=== PATIENT | male | born 1955 | race Caucasian/White ===

== ENCOUNTER 2016-08-05 19:27 | Emergency (ER) | payer MEDICAID ==
[2016-08-05 19:48] VITALS: BMI 28.7
[2016-08-05 20:04] VITALS: BP 134/72; PULSE 72; RESP 16; TEMP 97.7
--- NOTE | 2016-08-05 20:04 | ED PDOC ---
Arrival/HPI <Logan Lau DO - Last Filed: 08/06/16 00:07> - General Historian: Patient - History of Present Illness Time/Duration: > month Symptom Onset: Gradual Symptom Course: Worsening Context: Home <Ashlee Wright - Last Filed: 08/08/16 15:46> - General Chief Complaint: ENT Problem Time Seen by Provider: 08/05/16 19:58 - History of Present Illness Narrative History of Present Illness (Text): 08/05/16 20:00 This 60 yo male with pmh tobacco use, presents to this ED c/o left mandibular mass x 4-5 weeks. Patient stated mass has worsen within last few days. Denies ear pain, sore throat, cough, sob, cp, abdominal pain, dizziness, or skin rash. Patient noted left calf pain x 4 weeks. (Ashlee Wright) Past Medical History - Provider Review Nursing Documentation Reviewed: Yes - Cardiac Hx Cardiac Disorders: No - Pulmonary Hx Respiratory Disorders: No - Neurological Hx Neurological Disorder: No - HEENT Hx HEENT Disorder: No - Renal Hx Renal Disorder: No - Endocrine/Metabolic Hx Diabetes Mellitus Type 2: Yes - Hematological/Oncological Hx Blood Disorders: No - Integumentary Hx Dermatological Disorder: No - Musculoskeletal/Rheumatological Hx Musculoskeletal Disorders: No - Gastrointestinal Hx Gastrointestinal Disorders: No - Genitourinary/Gynecological Hx Genitourinary Disorders: No - Psychiatric Hx Psychophysiologic Disorder: No Hx Substance Use: No - Anesthesia Hx Anesthesia: No Hx Anesthesia Reactions: No Hx Malignant Hyperthermia: No <Ashlee Wright P - Last Filed: 08/08/16 15:46> Family/Social History - Physician Review Nursing Documentation Reviewed: Yes Family/Social History: No Known Family HX Smoking Status: Heavy Smoker > 10 Cigarettes Daily Hx Alcohol Use: No Hx Substance Use: No <Ashlee Wright P - Last Filed: 08/08/16 15:46> Allergies/Home Meds <Logan Lau DO - Last Filed: 08/06/16 00:07> <Ashlee Wright - Last Filed: 08/08/16 15:46> Allergies/Adverse Reactions: Allergies No Known Allergies Allergy (Verified 08/05/16 19:48) Home Medications: Home Meds Medication Instructions Recorded Confirmed Famotidine [Pepcid AC] 0 PO 08/05/16 Review of Systems - Review of Systems Constitutional: Normal. absent: Fatigue, Weight Change, Fevers Eyes: Normal ENT: Other (Left neck mass) Respiratory: Normal. absent: SOB, Cough Cardiovascular: Normal. absent: Chest Pain, Palpitations Gastrointestinal: Normal. absent: Abdominal Pain, Nausea, Vomiting Genitourinary Male: Normal. absent: Dysuria Musculoskeletal: Other (Left calf pain). absent: Back Pain, Neck Pain, Joint Swelling Skin: Normal, Other (See HPI) Neurological: Normal Endocrine: Normal Hemo/Lymphatic: Normal Psychiatric: Normal <Wright,Nahim P - Last Filed: 08/08/16 15:46> Physical Exam Temperature: Afebrile Blood Pressure: Normal Pulse: Regular Respiratory Rate: Normal Appearance: Positive for: Well-Appearing, Non-Toxic, Comfortable Pain Distress: None Mental Status: Positive for: Alert and Oriented X 3 - Systems Exam Head: Present: Atraumatic, Normocephalic Pupils: Present: PERRL Extroacular Muscles: Present: EOMI Conjunctiva: Present: Normal Mouth: Present: Moist Mucous Membranes Neck: Present: Normal Range of Motion Respiratory/Chest: Present: Clear to Auscultation, Good Air Exchange. No: Respiratory Distress, Accessory Muscle Use Cardiovascular: Present: Regular Rate and Rhythm, Normal S1, S2. No: Murmurs Abdomen: Present: Normal Bowel Sounds. No: Tenderness, Distention, Peritoneal Signs Back: Present: Normal Inspection Upper Extremity: Present: Normal Inspection. No: Cyanosis, Edema Lower Extremity: Present: Normal Inspection. No: Edema Neurological: Present: GCS=15, CN II-XII Intact, Speech Normal Skin: Present: Warm, Dry, Normal Color. No: Rashes Psychiatric: Present: Alert, Oriented x 3, Normal Insight, Normal Concentration <Wright,Nahim P - Last Filed: 08/08/16 15:46> Vital Signs Temp Pulse Resp BP Pulse Ox 08/05/16 23:20 16 98 08/05/16 20:03 97.7 F 72 16 134/72 99 Medical Decision Making - RAD Interpretation Hide Handler: Radiologist <Logan Lau DO - Last Filed: 08/06/16 00:07> Re-evaluation Time: 02:15 Reassessment Condition: Re-examined, Unchanged <Wright,Nahim P - Last Filed: 08/08/16 15:46> ED Course and Treatment: 08/06/16 00:08 CT neck results reviewed: IMPRESSION: 2.3 x 3 x 3.4 cm enhancing mass within the left parotid gland. Question pleomorphic adenoma versus other tumor. Tissue sampling will aid in evaluation. (Logan Lau DO) 08/05/16 21:18 pending labs, CT neck scan. Lower extremity venous doppler was negative as per ultrasound. Dr. Lau is aware of this case, and he will f/u labs, and CT imaging result. (Ashlee Wright) - Lab Interpretations Lab Results: 08/05/16 21:20 08/05/16 21:20 Lab Results 08/05/16 21:20: WBC 8.0, RBC 5.18, Hgb 15.4, Hct 44.7, MCV 86.3, MCH 29.7, MCHC 34.5, RDW 13.4, Plt Count 251, MPV 11.2 H, Gran % 60.2, Lymph % (Auto) 31.6, [place] % (Auto) 5.6, Eos % (Auto) 2.2, Baso % (Auto) 0.4, Gran # 4.83, Lymph # 2.5 , [place] # 0.5, Eos # 0.2, Baso # 0.03 08/05/16 21:20: Sodium 138, Potassium 4.6, Chloride 99, Carbon Dioxide 28, Anion Gap 16, BUN 17, Creatinine 0.8, Est GFR ( Amer) > 60, Est GFR (Non- Af Amer) > 60, Random Glucose 178 H, Calcium 9.4, Total Bilirubin 0.6, AST 20, ALT 32, Alkaline Phosphatase 66, Total Protein 7.7, Albumin 4.0, Globulin 3.7, Albumin/Globulin Ratio 1.1 - RAD Interpretation Narrative RAD Interpretations (Text): EXAM: CT Neck With Intravenous Contrast FINDINGS: Airway is unremarkable as visualized. No significant tonsillar enlargement. No peritonsillar abscess. Normal epiglottis. Retropharyngeal space is unremarkable. 2.3 x 3 x 3.4 cm enhancing mass within the left parotid gland. Shotty nodes. Thyroid demonstrates no enlarged or calcified nodules. Osseous structures intact. IMPRESSION: 2.3 x 3 x 3.4 cm enhancing mass within the left parotid gland. Question pleomorphic adenoma versus other tumor. Tissue sampling will aid in evaluation. (Logan Lau DO) Radiology Orders: 08/05/16 19:59 NECK SOFT TISSUE W/CONTRAST [CT] Stat DUPLEX LOWER EXTRM VEIN LEFT [US] Stat - Medication Orders Current Medication Orders: Discontinued Medications Iohexol (Omnipaque 350 100 Ml) Confirm Administered Dose 350 mg .ROUTE .STK-MED ONE Stop: 08/05/16 22:40 Disposition/Present on Arrival <Logan Lau DO - Last Filed: 08/06/16 00:07> - Present on Arrival Any Indicators Present on Arrival: No History of DVT/PE: No History of Uncontrolled Diabetes: No Urinary Catheter: No History of Decub. Ulcer: No History Surgical Site Infection Following: None - Disposition Have Diagnosis and Disposition been Completed?: Yes Disposition Time: 03:40 <Ashlee Wright - Last Filed: 08/08/16 15:46> - Disposition Diagnosis: Parotid mass Disposition: HOME/ ROUTINE Condition: GOOD Additional Instructions: Thank you for letting us take care of you today. You were treated for a parotid mass. The emergency medical care you received today was directed at your acute symptoms. If you were prescribed any medication, please fill it and take as directed. It may take several days for your symptoms to resolve. Return to the Emergency Department if your symptoms worsen, do not improve, or if you have any other problems. Please contact your doctor or call one of the physicians/clinics you have been referred to that are listed on the Patient Visit Information form that is included in your discharge packet. Bring any paperwork you were given at discharge with you along with any medications you are taking to your follow up visit. Our treatment cannot replace ongoing medical care by a primary care provider (PCP) outside of the emergency department. Thank you for allowing the [facility] team to be part of your care today. Follow up with Dr. You (ENT) in 2-3 days for further evaluation of the mass on the side of your jaw. Return to the emergency room if you have any concerns. Prescriptions: Ibuprofen [Motrin] 600 mg PO Q6 PRN #20 tab PRN Reason: Pain, Moderate (4-7) Referrals: Tam You DO [Staff Provider] - Follow up with primary PCP,NO [Primary Care Provider] - Follow up with primary
[2016-08-05 21:26] LABS: ADD MANUAL DIFF? NO
[2016-08-05 21:41] LABS: ALB/GLOB RATIO 1.1 (1.1-1.8); ALKALINE PHOSPHATASE 66 U/L (38-133); ALT/SGPT 32 U/L (7-56); AST/SGOT 20 U/L (15-59); BILIRUBIN,TOTAL 0.6 mg/dL (0.2-1.3); BLOOD UREA NITROGEN 17 mg/dL (7-21); CALCIUM 9.4 mg/dL (8.4-10.5); CARBON DIOXIDE 28 mmol/L (21-33); CHLORIDE 99 mmol/L (98-107); GFR AFRICAN-AMERICAN > 60; GLUCOSE,RANDOM 178 mg/dL (70-110); POTASSIUM 4.6 mmol/L (3.6-5.0); SODIUM 138 mmol/L (132-148); TOTAL PROTEIN 7.7 g/dL (5.8-8.3)
[2016-08-05 22:02] LABS: BASO # 0.03 K/mm3 (0.0-2.0); BASO % 0.4 % (0.0-3.0); EOS # 0.2 (0.0-0.7); EOS % 2.2 % (1.5-5.0); GRAN # 4.83 (1.4-6.5); GRAN % 60.2 % (50.0-68.0); HEMATOCRIT 44.7 % (42.0-52.0); LYMPH # 2.5 (1.2-3.4); LYMPH % 31.6 % (22.0-35.0); MEAN CELL VOLUME 86.3 fL (80.0-105.0); MEAN CORPUSCULAR HEMOGLOBIN 29.7 pg (25.0-35.0); MEAN CORPUSCULAR HGB CONC 34.5 g/dl (31.0-37.0); MEAN PLATELET VOLUME 11.2 fl (7.0-11.0); MONO # 0.5 (0.1-0.6); MONO % 5.6 % (1.0-6.0); PLATELET COUNT 251 10^3/uL (120.0-450.0); RED CELL DISTRIBUTION WIDTH 13.4 % (11.5-14.5)
[2016-08-05] MEDS ORDERED: Iohexol 350 MG/100 ML VIAL ONE (22:39)
--- NOTE | 2016-08-05 23:24 | CT ---
EXAM: CT Neck With Intravenous Contrast CLINICAL HISTORY: 60 years old, male; Signs and symptoms; Mass, lump, or swelling in neck; Additional info: Left madibular mass TECHNIQUE: Axial computed tomography images of the neck with intravenous contrast. This CT exam was performed using one or more of the following dose reduction techniques: automated exposure control, adjustment of the mA and/or kV according to patient size, and/or use of iterative reconstruction technique. Coronal and sagittal reformatted images were created and reviewed. CONTRAST: 96 mL of OMNI 350 administered intravenously. COMPARISON: No relevant prior studies available. FINDINGS: Airway is unremarkable as visualized. No significant tonsillar enlargement. No peritonsillar abscess. Normal epiglottis. Retropharyngeal space is unremarkable. 2.3 x 3 x 3.4 cm enhancing mass within the left parotid gland. Shotty nodes. Thyroid demonstrates no enlarged or calcified nodules. Osseous structures intact. IMPRESSION: 2.3 x 3 x 3.4 cm enhancing mass within the left parotid gland. Question pleomorphic adenoma versus other tumor. Tissue sampling will aid in evaluation.
[2016-08-06 01:53] VITALS: O2SAT 98
--- NOTE | 2016-08-06 10:07 | US ---
PROCEDURE: Left lower extremity venous US HISTORY: Leg pain and swelling. Evaluate for DVT. PHYSICIAN(S): Sal Hernandez MD. TECHNIQUE: Duplex sonography and color-flow Doppler with graded compression were used to evaluate the deep venous system of the left lower extremity. FINDINGS: The visualized deep venous system of the left lower extremity is sonographically normal and compressible. Normal wave forms and augmentation are seen. There is no sonographic evidence for deep venous thrombosis in the visualized segments of the left lower extremity. IMPRESSION: 1. No sonographic evidence for deep venous thrombosis in the visualized segments of the left lower extremity.
== END 2016-08-06 01:53 | disposition home or self-care (01) ==
LOC: ED 19:27
DX: K11.8 Other diseases of salivary glands (principal)
CPT/HCPCS: 70491; 80053; 85025; 93971; 99283; Q9967

== ENCOUNTER 2017-10-25 15:01 | Inpatient (IN) | payer MEDICAID ==
[2017-10-25 15:14] VITALS: BMI 27.1
--- NOTE | 2017-10-25 15:43 | ED PDOC ---
Arrival/HPI - General Historian: Patient, Family - History of Present Illness Time/Duration: 1 hour Symptom Onset: Sudden Symptom Course: Resolved Quality: Aching, Cramping, Gas Like Severity Level: 4 Context: Standing, Walking <Roger Torres - Last Filed: 10/25/17 17:49> <Holland Lee - Last Filed: 10/25/17 18:20> - General Chief Complaint: Weakness/Neurological Deficit Time Seen by Provider: 10/25/17 15:20 - History of Present Illness Narrative History of Present Illness (Text): 10/25/17 15:43 61 year-old male with PMH of DM2 and GERD presents to the ED complaining of general weakness, chest discomfort, and dizziness. Approximately one hour ago, the patient had just finished having a big lunch, went outside, and started pulling weeds in his yard. He began feeling nauseous and short of breath. Patient vomited and then went inside his home where he collapsed. Patient denies falling and hitting his head or losing consciousness. Patient currently states that he is feeling better but still feels very weak and his chest discomfort feels like acid reflux, which he deals with often. Patient admits to nausea, vomiting, dizziness, chest discomfort, weakness, and fatigue. Patient is also a smoker and reports that he smokes one pack per day for many years. (Roger Torres) Past Medical History - Provider Review Nursing Documentation Reviewed: Yes - Travel History Have you recently traveled outside [place] w/in the past 3 mons?: No - Cardiac Hx Cardiac Disorders: No - Pulmonary Hx Respiratory Disorders: No - Neurological Hx Neurological Disorder: No - HEENT Hx HEENT Disorder: No - Renal Hx Renal Disorder: No - Endocrine/Metabolic Hx Diabetes Mellitus Type 2: Yes - Hematological/Oncological Hx Blood Disorders: No - Integumentary Hx Dermatological Disorder: No - Musculoskeletal/Rheumatological Hx Musculoskeletal Disorders: No - Gastrointestinal Hx Gastrointestinal Disorders: No - Genitourinary/Gynecological Hx Genitourinary Disorders: No - Psychiatric Hx Psychophysiologic Disorder: No Hx Substance Use: No - Anesthesia Hx Anesthesia: No Hx Anesthesia Reactions: No Hx Malignant Hyperthermia: No <Roger Torres - Last Filed: 10/25/17 17:49> Family/Social History - Physician Review Nursing Documentation Reviewed: Yes Family/Social History: Diabetes (mother) Smoking Status: Heavy Smoker > 10 Cigarettes Daily Hx Alcohol Use: No Hx Substance Use: No <Roger Torres - Last Filed: 10/25/17 17:49> Allergies/Home Meds <Roger Torres - Last Filed: 10/25/17 17:49> <Holland Lee - Last Filed: 10/25/17 18:20> Allergies/Adverse Reactions: Allergies No Known Allergies Allergy (Verified 10/25/17 15:27) Review of Systems - Review of Systems Constitutional: absent: Fatigue, Fevers, Night Sweats Eyes: absent: Vision Changes, Photophobia ENT: absent: Hearing Changes, Sore Throat Respiratory: SOB. absent: Cough Cardiovascular: Chest Pain. absent: Palpitations, Edema, Syncope Gastrointestinal: Nausea, Vomiting. absent: Abdominal Pain Genitourinary Male: absent: Dysuria Musculoskeletal: absent: Arthralgias Skin: absent: Rash, Pruritis Neurological: Dizziness. absent: Headache, Speech Changes, Facial Droop Endocrine: Diaphoresis Hemo/Lymphatic: absent: Adenopathy Psychiatric: absent: Anxiety, Depression <Roger Torres - Last Filed: 10/25/17 17:49> - Physician Review All systems were reviewed & negative as marked: Yes <Holland Lee - Last Filed: 10/25/17 18:20> Physical Exam Vital Signs Reviewed: Yes <Roger Torres - Last Filed: 10/25/17 17:49> Temperature: Afebrile Blood Pressure: Normal Pulse: Regular Respiratory Rate: Normal Appearance: Positive for: Well-Appearing, Non-Toxic, Uncomfortable, Other ( Diaphoretic) Pain Distress: None Mental Status: Positive for: Alert and Oriented X 3 - Systems Exam Head: Present: Atraumatic, Normocephalic Pupils: Present: PERRL Extroacular Muscles: Present: EOMI Conjunctiva: Present: Normal Ears: Present: NORMAL TM, Normal Canal. No: Erythema Mouth: Present: Moist Mucous Membranes Pharnyx: No: ERYTHEMA, EXUDATE, TONSILS ENLARGED Neck: Present: Normal Range of Motion Respiratory/Chest: Present: Clear to Auscultation, Good Air Exchange, Decreased Breath Sounds. No: Respiratory Distress, Accessory Muscle Use Cardiovascular: Present: Regular Rate and Rhythm, Normal S1, S2. No: Murmurs Abdomen: No: Tenderness, Distention, Peritoneal Signs, Rebound, Guarding Back: Present: Normal Inspection Upper Extremity: Present: Normal Inspection. No: Cyanosis, Edema Lower Extremity: Present: Normal Inspection. No: Edema Neurological: Present: GCS=15, CN II-XII Intact, Speech Normal, Motor Func Grossly Intact Skin: Present: Warm, Normal Color, Diaphoretic. No: Rashes Psychiatric: Present: Alert, Oriented x 3, Normal Insight, Normal Concentration <Holland Lee - Last Filed: 10/25/17 18:20> Vital Signs Temp Pulse Resp BP Pulse Ox 10/25/17 17:08 97.7 F 10/25/17 16:57 75 18 127/64 97 10/25/17 16:17 72 15 96 10/25/17 15:17 128/88 Medical Decision Making - Lab Interpretations I have reviewed the lab results: Yes Interpretation: Abnormal lab values (hyperglycemia) - RAD Interpretation Belting And Webbing Inspector: Radiologist - EKG Interpretation Interpreted by ED Physician: Yes Type: 12 lead EKG Comparison: No previous EKG avail. <Roger Torres - Last Filed: 10/25/17 17:49> <Holland Lee - Last Filed: 10/25/17 18:20> ED Course and Treatment: 10/25/17 16:47 -Suspicion for ACS -EKG reviewed by STEMI metal cut off saw operator, no need for cath at this time -Troponin pending -Patient reports pain has improved s/p ASA and nitro paste 10/25/17 17:06 -Spoke with Dr. Hussein who agrees to admission (Roger Torres) 10/25/17 16:41 Seen and examined with the resident. Our history and physical exam reveals a gentleman with acute onset of severe diaphoresis nausea and vomiting chest pain near syncope and shortness of breath. He is a heavy smoker. His EKG shows diffuse minimal ST elevations. The EKG was reviewed by the STEMI metal cut off saw operator , who does not want to take the patient to the lab at this time. ( Holland Lee) - Lab Interpretations Lab Results: 10/25/17 15:57 10/25/17 15:57 Lab Results 10/25/17 15:57: Lipase 249 10/25/17 15:57: PT 12.0, INR 1.05, APTT 25.1 10/25/17 15:57: WBC 7.9, RBC 4.92, Hgb 14.4, Hct 41.6 L, MCV 84.6, MCH 29.3, MCHC 34.6, RDW 13.4, Plt Count 193, MPV 11.0, Gran % 75.6 H, Lymph % (Auto) 15.0 L, [place] % (Auto) 8.1 H, Eos % (Auto) 0.9 L, Baso % (Auto) 0.4, Gran # 5.94 , Lymph # (Auto) 1.2, [place] # (Auto) 0.6, Eos # (Auto) 0.1, Baso # (Auto) 0.03 10/25/17 15:57: Sodium 140, Potassium 4.1, Chloride 103, Carbon Dioxide 28, Anion Gap 14, BUN 15, Creatinine 1.0, Est GFR ( Amer) > 60, Est GFR (Non- Af Amer) > 60, Random Glucose 233 H, Calcium 9.4, Phosphorus 2.3 L, Magnesium 2.0, Total Bilirubin 0.4, AST 16 L, ALT 23, Alkaline Phosphatase 62, Lactate Dehydrogenase 364, Total Creatine Kinase 62, Troponin I 0.01, Total Protein 7.0 , Albumin 4.0, Globulin 3.0, Albumin/Globulin Ratio 1.3 - RAD Interpretation Narrative RAD Interpretations (Text): 10/25/17 17:07 CXR without acute findings (Roger Torres) Radiology Orders: 10/25/17 15:37 CHEST PORTABLE [RAD] Stat - EKG Interpretation EKG Interpretation (Text): 10/25/17 17:07 Normal sinus but with some ST abnormalities in II, III, reviewed with STEMI metal cut off saw operator (Roger Torres) - Medication Orders Current Medication Orders: Aspirin (Ecotrin) 81 mg PO DAILY ERMELINDA Insulin Human Regular (Humulin R Med) 0 units SC ACHS ERMELINDA PRN Reason: Protocol Discontinued Medications Aspirin (Aspirin) 325 mg PO STAT STA Stop: 10/25/17 15:56 Last Admin: 10/25/17 16:09 Dose: 325 mg Nitroglycerin (Nitro-Bid 2% Oint) 1 ea TOP STAT STA Stop: 10/25/17 16:00 Last Admin: 10/25/17 16:09 Dose: 1 ea Disposition/Present on Arrival - Present on Arrival Any Indicators Present on Arrival: No History of DVT/PE: No History of Uncontrolled Diabetes: No Urinary Catheter: No History of Decub. Ulcer: No History Surgical Site Infection Following: None - Disposition Disposition Time: 17:09 Patient Plan: Admission <Rgoer Torres - Last Filed: 10/25/17 17:49> - Present on Arrival Any Indicators Present on Arrival: No History of DVT/PE: No History of Uncontrolled Diabetes: Yes Urinary Catheter: No History of Decub. Ulcer: No - Disposition Have Diagnosis and Disposition been Completed?: Yes Patient Plan: Observation, Telemetry <Holland Lee - Last Filed: 10/25/17 18:20> - Disposition Diagnosis: Weakness, High risk of cardiac event, Chest pain, Dyspnea, Diaphoresis, Nausea and vomiting, Hyperglycemia Disposition: HOSPITALIZED Patient Problems: Current Active Problems Problem Status Onset Chest pain Acute Diaphoresis Acute Dyspnea Acute High risk of cardiac event Acute Hyperglycemia Acute Nausea and vomiting Acute Weakness Acute Condition: FAIR
[2017-10-25] MEDS ORDERED: Nitroglycerin 2% Ointment Foilpak UD TOP STA (15:59)
--- NOTE | 2017-10-25 16:03 | RAD ---
Date of service: 10/25/2017 HISTORY: SOB, pre-syncopal episode COMPARISON: No prior. FINDINGS: LUNGS: No active pulmonary disease. PLEURA: No significant pleural effusion identified, no pneumothorax apparent. CARDIOVASCULAR: Normal. OSSEOUS STRUCTURES: No significant abnormalities. VISUALIZED UPPER ABDOMEN: Normal. OTHER FINDINGS: None. IMPRESSION: No active disease.
[2017-10-25 16:16] LABS: BASO # 0.03 K/mm3 (0.0-2.0); BASO % 0.4 % (0.0-3.0); EOS # 0.1 (0.0-0.7); EOS % 0.9 % (1.5-5.0); GRAN # 5.94 (1.4-6.5); GRAN % 75.6 % (50.0-68.0); HEMOGLOBIN 14.4 g/dL (14.0-18.0); LYMPH # 1.2 (1.2-3.4); MEAN CELL VOLUME 84.6 fl (80.0-105.0); MEAN CORPUSCULAR HEMOGLOBIN 29.3 pg (25.0-35.0); MEAN CORPUSCULAR HGB CONC 34.6 g/dl (31.0-37.0); MONO # 0.6 (0.1-0.6); MONO % 8.1 % (1.0-6.0); RBC 4.92 10^6/uL (3.5-6.1); RED CELL DISTRIBUTION WIDTH 13.4 % (11.5-14.5); WHITE BLOOD COUNT 7.9 10^3/ul (4.5-11.0)
[2017-10-25 16:26] LABS: INR 1.05; PARTIAL THROMBOPLASTIN TIME 25.1 Seconds (25.1-36.5)
[2017-10-25 16:37] LABS: ALB/GLOB RATIO 1.3 (1.1-1.8); ALT/SGPT 23 U/L (7-56); AST/SGOT 16 U/L (17-59); BLOOD UREA NITROGEN 15 mg/dL (7-21); CALCIUM 9.4 mg/dL (8.4-10.5); GFR AFRICAN-AMERICAN > 60; GFR NON-AFRICAN AMERICAN > 60
[2017-10-25 16:47] LABS: TROPONIN I 0.01 ng/mL
--- NOTE | 2017-10-25 18:23 | CP.PCM.HP ---
<Russell Dunne - Last Filed: 10/25/17 19:19> History of Present Illness - History of Present Illness History of Present Illness: Russell Dunne, PGY-1 History and Physical for Hospitalist Service CC: substernal chest pain Shortness of breath, dizziness HPI: 61 M with PMHx of GERD, PUD, and DM2 who presented with non-radiating, non- reproducible substernal chest pain, full body weakness and dizziness after weeding his garden this afternoon. Per the patient, patient went outside to do house chores after eating a big meal. Patient typically waits to digest food due to his history of indigestion but was in a christopher today. Patient was outside in the heat and felt nauseous and weak, at which point patient sat on the ground and vomited. Vomit was one time nonbloody and consisted of food he had for lunch. Patient reported relief at that point. Patient denies falling, hitting his head, loss of consciousness, urinary or bowel incontinence or vision changes. Patient's called for an ambulance. Patient received ASA 325 and nitropaste , which patient reports complete relief from. Patient denies any previous cardiac issues or family hx of similar issues. PMHx: GERD, DM2, L sided UE tremor PSHx: unknown All: NKDA Social: tobacco 1 pk/day, denies ETOH and substance abuse. Fam Hx: mom has DM, otherwise unknown Home Meds: Pepcid 20, Glipizide 5, Motrin PRN PMD: Dr. Srinivasan Pharm: None Present on Admission - Present on Admission Any Indicators Present on Admission: No History of Uncontrolled Diabetes: No Review of Systems - Constitutional Constitutional: absent: Anorexia, Chills, Frequent Falls, Weight Loss, Weakness - EENT Eyes: absent: Other Visual Disturbances, Loss of Vision Ears: Dizziness (has resolved since inciting event this afternoon). absent: Ear Pain Nose/Mouth/Throat: absent: Dry Mouth, Dysphagia, Hoarsness, Mouth Pain - Cardiovascular Cardiovascular: Chest Pain (resolved), Lightheadedness (improved). absent: Leg Edema, Orthopnea, Palpitations - Respiratory Respiratory: absent: Cough, Hemoptysis, Stridor, Pain with Coughing - Gastrointestinal Gastrointestinal: absent: Abdominal Pain, Bloating - Genitourinary Genitourinary: absent: Change in Urinary Stream, Difficulty Urinating Additional comments: reports harder stools recently - Musculoskeletal Musculoskeletal: absent: Back Pain, Numbness - Neurological Neurological: absent: Numbness, Focal Weakness, Headaches Past Patient History - Past Social History Smoking Status: Heavy Smoker > 10 Cigarettes Daily - CARDIAC Hx Cardiac Disorders: No - PULMONARY Hx Respiratory Disorders: No - NEUROLOGICAL Hx Neurological Disorder: No - HEENT Hx HEENT Problems: No - RENAL Hx Chronic Kidney Disease: No - ENDOCRINE/METABOLIC Hx Diabetes Mellitus Type 2: Yes - HEMATOLOGICAL/ONCOLOGICAL Hx Blood Disorders: No - INTEGUMENTARY Hx Dermatological Problems: No - MUSCULOSKELETAL/RHEUMATOLOGICAL Hx Musculoskeletal Disorders: No - GASTROINTESTINAL Hx Gastrointestinal Disorders: No - GENITOURINARY/GYNECOLOGICAL Hx Genitourinary Disorders: No - PSYCHIATRIC Hx Psychophysiologic Disorder: No Hx Substance Use: No - SURGICAL HISTORY Hx Surgeries: No - ANESTHESIA Hx Anesthesia: No Hx Anesthesia Reactions: No Hx Malignant Hyperthermia: No Meds Allergies/Adverse Reactions: Allergies Allergy/AdvReac Type Severity Reaction Status Date / Time No Known Allergies Allergy Verified 10/25/17 15:27 Physical Exam - Constitutional Appears: Well, Non-toxic, No Acute Distress - Head Exam Head Exam: ATRAUMATIC, NORMAL INSPECTION, NORMOCEPHALIC - Eye Exam Eye Exam: EOMI, Normal appearance Pupil Exam: PERRL - ENT Exam ENT Exam: Mucous Membranes Moist, Normal Exam - Neck Exam Neck exam: Positive for: Normal Inspection - Respiratory Exam Respiratory Exam: Clear to Auscultation Bilateral, NORMAL BREATHING PATTERN. absent: Rales, Rhonchi, Wheezes - Cardiovascular Exam Cardiovascular Exam: RRR, +S1, +S2 - GI/Abdominal Exam GI & Abdominal Exam: Normal Bowel Sounds, Soft. absent: Tenderness - Extremities Exam Extremities exam: Positive for: normal inspection. Negative for: calf tenderness, joint swelling, pedal edema - Back Exam Back exam: NORMAL INSPECTION - Neurological Exam Neurological exam: Alert, CN II-XII Intact, Oriented x3 - Psychiatric Exam Psychiatric exam: Normal Affect, Normal Mood - Skin Skin Exam: Dry, Intact, Normal Color, Warm Results - Vital Signs Recent Vital Signs: Last Vital Signs Temp 97.7 F 10/25/17 17:08 Pulse 75 10/25/17 16:57 Resp 18 10/25/17 16:57 BP 127/64 10/25/17 16:57 Pulse Ox 97 10/25/17 16:57 - Labs Result Diagrams: 10/25/17 15:57 10/25/17 15:57 Assessment & Plan - Assessment and Plan (Free Text) Assessment: 61 M with PMHx GERD, DM2 who presented with chest pain, dizziness. Currently in the ED, patient is comfortable and pain has resolved. Chest Pain r/o ACS ASA 325 and nitropaste given which brought relief EKG performed showed nonspecific T wave changes in inferior leads, which was read as not requiring emergent catheterization troponin x1 negative. f/u 2nd and 3rd f/u repeat EKG in AM f/u lipid panel HHD mod carb ASA 81 to begin tomorrow f/u AM labs cardio consulted (Stef) DM2 noncompliance on Glipizide sugars 233, 106 per patient this AM accuchecks IDD moderate will continue to monitor Unilateral Tremor paroxysmal, new onset. No focal deficits not evident during exam f/u CT head w/o contrast Ppx: Protonix SCD Patient seen, case reviewed, and plan discussed with Dr. Barbour. Russell Dunne, PGY-1 <Andrew Barbour - Last Filed: 10/26/17 08:08> Results - Vital Signs Recent Vital Signs: Last Vital Signs Temp 97.8 F 10/26/17 05:58 Pulse 64 10/26/17 05:58 Resp 18 10/26/17 05:58 BP 116/60 10/26/17 05:58 Pulse Ox 97 10/26/17 05:58 - Labs Result Diagrams: 10/26/17 03:25 10/26/17 03:25 Labs: Laboratory Results - last 24 hr 10/25/17 10/25/17 10/26/17 21:05 21:37 03:25 WBC 8.1 RBC 4.64 Hgb 13.5 L Hct 39.6 L MCV 85.3 MCH 29.1 MCHC 34.1 RDW 13.6 Plt Count 178 MPV 10.7 Gran % 61.4 Lymph % (Auto) 29.8 [place] % (Auto) 7.0 H Eos % (Auto) 1.4 L Baso % (Auto) 0.4 Gran # 4.99 Lymph # (Auto) 2.4 [place] # (Auto) 0.6 Eos # (Auto) 0.1 Baso # (Auto) 0.03 Sodium Potassium Chloride Carbon Dioxide Anion Gap BUN Creatinine Est GFR ( Amer) Est GFR (Non-Af Amer) POC Glucose (mg/dL) 228 H Random Glucose Calcium Total Bilirubin AST ALT Alkaline Phosphatase Troponin I 0.23 H* D Total Protein Albumin Globulin Albumin/Globulin Ratio TSH 3rd Generation 10/26/17 10/26/17 03:25 03:25 WBC RBC Hgb Hct MCV MCH MCHC RDW Plt Count MPV Gran % Lymph % (Auto) [place] % (Auto) Eos % (Auto) Baso % (Auto) Gran # Lymph # (Auto) [place] # (Auto) Eos # (Auto) Baso # (Auto) Sodium 141 Potassium 4.0 Chloride 108 H Carbon Dioxide 25 Anion Gap 13 BUN 14 Creatinine 0.9 Est GFR ( Amer) > 60 Est GFR (Non-Af Amer) > 60 POC Glucose (mg/dL) Random Glucose 127 H Calcium 8.8 Total Bilirubin 0.5 AST 15 L ALT 29 Alkaline Phosphatase 51 Troponin I 0.57 H* D Total Protein 6.5 Albumin 3.6 Globulin 2.9 Albumin/Globulin Ratio 1.2 TSH 3rd Generation 0.28 L Attending/Attestation - Attestation I have personally seen and examined this patient.: Yes I have fully participated in the care of the patient.: Yes I have reviewed all pertinent clinical information: Yes Notes (Text): 10/26/17 08:04 Medical record note made by the resident after discussion with my direction and input after the patient was personally seen and examined by me. I have reviewed the chart and agree that the record accurately reflects by personal performance of the history, physical exam, data review, and medical decision-making, in the course for the patient. I have also personally directed the plan of care. 61 M with PMHx of GERD, PUD, and NIDDM is admitted with chest pain while working in his lawn.EKG showed ST changes in inferior lead.Patient is currently pain free.We will admit him to the telemetry, we will get serial cardiac enzyme.At this time, we will start patient on ASA and statin.We will also get cardiology evaluation. Management plan was discussed in detail with patient. Education was provided.
--- NOTE | 2017-10-25 18:52 | CT ---
Date of service: 10/25/2017 PROCEDURE: CT HEAD WITHOUT CONTRAST. HISTORY: unilateral UE tremor COMPARISON: None available. TECHNIQUE: Axial computed tomography images were obtained through the head/brain without intravenous contrast. Coronal and sagittal reconstructed images. Radiation dose: Total exam DLP = 940.07 mGy-cm. This CT exam was performed using one or more of the following dose reduction techniques: Automated exposure control, adjustment of the mA and/or kV according to patient size, and/or use of iterative reconstruction technique. FINDINGS: HEMORRHAGE: No intracranial hemorrhage. BRAIN: No mass effect or edema. No atrophy or chronic microvascular ischemic changes. VENTRICLES: Unremarkable. No hydrocephalus. CALVARIUM: Unremarkable. PARANASAL SINUSES: Unremarkable as visualized. No significant inflammatory changes. MASTOID AIR CELLS: Unremarkable as visualized. No inflammatory changes. OTHER FINDINGS: None. IMPRESSION: No significant or acute findings to account for/ related to the clinical presentation.
[2017-10-25 19:58] LABS: HDL CHOLESTEROL 31 mg/dL (29-60); LDL CHOLESTEROL 107 mg/dL (0-129)
[2017-10-25] MEDS: Insulin Reg-MEDIUM-Coverage SC SCH (22:00)
[2017-10-25] MEDS ORDERED: Pneumococcal 23-Valent Vaccine IM ONE (22:06)
[2017-10-25] MEDS ORDERED: Enoxaparin 100 mg Syringe SC SCH (22:30)
[2017-10-26 03:51] LABS: BASO # 0.03 K/mm3 (0.0-2.0); BASO % 0.4 % (0.0-3.0); EOS # 0.1 (0.0-0.7); EOS % 1.4 % (1.5-5.0); GRAN # 4.99 (1.4-6.5); GRAN % 61.4 % (50.0-68.0); HEMOGLOBIN 13.5 g/dL (14.0-18.0); LYMPH # 2.4 (1.2-3.4); LYMPH % 29.8 % (22.0-35.0); MEAN CELL VOLUME 85.3 fl (80.0-105.0); MEAN CORPUSCULAR HEMOGLOBIN 29.1 pg (25.0-35.0); MEAN CORPUSCULAR HGB CONC 34.1 g/dl (31.0-37.0); MEAN PLATELET VOLUME 10.7 fl (7.0-11.0); MONO # 0.6 (0.1-0.6); RBC 4.64 10^6/uL (3.5-6.1); RED CELL DISTRIBUTION WIDTH 13.6 % (11.5-14.5); WHITE BLOOD COUNT 8.1 10^3/ul (4.5-11.0)
[2017-10-26 05:29] LABS: ALB/GLOB RATIO 1.2 (1.1-1.8); ALBUMIN 3.6 g/dL (3.0-4.8); ALT/SGPT 29 U/L (7-56); AST/SGOT 15 U/L (17-59); BLOOD UREA NITROGEN 14 mg/dL (7-21); CALCIUM 8.8 mg/dL (8.4-10.5); GFR AFRICAN-AMERICAN > 60; GFR NON-AFRICAN AMERICAN > 60; TROPONIN I 0.57 ng/mL
[2017-10-26] MEDS: Pantoprazole 40 mg EC Tab PO SCH (06:42)
[2017-10-26] MEDS: Insulin Reg-MEDIUM-Coverage SC SCH ×4 (08:30→21:07)
[2017-10-26 09:03] LABS: PH,URINE 5.5 (4.7-8.0); URINE BILIRUBIN NEGATIVE (NEGATIVE); URINE BLOOD NEGATIVE (NEGATIVE); URINE GLUCOSE (UA) 250 mg/dL (NEGATIVE); URINE LEUKOCYTE ESTERASE NEGATIVE Leu/uL (NEGATIVE); URINE PROTEIN NEGATIVE mg/dL (<30 mg/dL); URINE UROBILINOGEN 0.2 E.U./dL (<1 E.U./dL)
[2017-10-26 09:07] LABS: URINE APPEARANCE CLEAR (CLEAR); URINE COLOR DARK YELLOW (YELLOW)
--- NOTE | 2017-10-26 10:49 | CP.PCM.CON ---
History of Present Illness - History of Present Illness History of Present Illness: Byron Viramontes PGY [address] Elise Mr. Bonilla is a 61-year-old male with a PMH of DM 2, GERD, PUD who presented with chest pain, body weakness and dizziness. The pain was also associated with nausea and vomiting 1. Overnight, troponin was noted to be elevated, and cardiology is treating patient for an NSTEMI. Patient is scheduled for left heart cath this afternoon. Neurology is consulted for left upper extremity resting tremor that the patient states he has been experiencing for 2 months. He states that he has been trying to make an appointment with a neurologist for 2 months, but the earliest he could get was with Dr. Rowan at [facility] at the end of October. The patient first noted the tremor when he was praying, and holding his hands up to his chest. The tremor is not present when he is moving his arm, or when he is holding his hands to his side. The patient states that he has been active his entire life, until he retired last May and since then has been feeling lazy and not active. The patient denies any gait instability, forgetfulness, numbness/tingling in any extremity, weakness or dropping any objects, or prior trauma to left arm/shoulder. He also denies any changes in vision, headache, changes in hearing, dizziness, shortness of breath , abdominal pain or fever/chills. The patient is not aware of any family history of Parkinson's disease or any other neurological diseases or tremors. As far as he knows, his diabetes is well controlled on glipizide and dietary control. ROS was reviewed and is otherwise unremarkable. PMH: As stated above PSH: Not significant Meds: As per MAR Allergies: NKDA SHX: Tobacco 1 pack per day for many years, denies EtOH or substance abuse. 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; now retired SHX: DM 2 but no neurological diseases Review of Systems - Review of Systems All systems: reviewed and no additional remarkable complaints except (as per HPI ) Past Patient History - Past Social History Smoking Status: Heavy Smoker > 10 Cigarettes Daily Alcohol: None Drugs: Denies Home Situation {Lives}: With Family - CARDIAC Hx Cardiac Disorders: No - PULMONARY Hx Respiratory Disorders: No - NEUROLOGICAL Hx Neurological Disorder: Yes Other/Comment: left arm tremors x 2 months cause unknown - HEENT Hx HEENT Problems: No - RENAL Hx Chronic Kidney Disease: No - ENDOCRINE/METABOLIC Hx Diabetes Mellitus Type 2: Yes - HEMATOLOGICAL/ONCOLOGICAL Hx Blood Disorders: No - INTEGUMENTARY Hx Dermatological Problems: No - MUSCULOSKELETAL/RHEUMATOLOGICAL Hx Falls: No - GASTROINTESTINAL Hx Gastrointestinal Disorders: Yes Hx Gastroesophageal Reflux: Yes Hx Ulcer: Yes - GENITOURINARY/GYNECOLOGICAL Hx Genitourinary Disorders: No - PSYCHIATRIC Hx Psychophysiologic Disorder: No Hx Substance Use: No - SURGICAL HISTORY Hx Surgeries: No - ANESTHESIA Hx Anesthesia: No Hx Anesthesia Reactions: No Hx Malignant Hyperthermia: No Meds Allergies/Adverse Reactions: Allergies Allergy/AdvReac Type Severity Reaction Status Date / Time No Known Allergies Allergy Verified 10/25/17 15:27 - Medications Medications: Current Medications Aspirin (Ecotrin) 81 mg PO DAILY [facility] Last Admin: 10/26/17 09:38 Dose: 81 mg Atorvastatin Calcium (Lipitor) 40 mg PO DIN [facility] Last Admin: 10/26/17 09:38 Dose: 40 mg Clopidogrel Bisulfate (Plavix) 75 mg PO DAILY [facility] Last Admin: 10/26/17 09:38 Dose: 75 mg Enoxaparin Sodium (Lovenox) 90 mg SC Q12H [facility] PRN Reason: Protocol Last Admin: 10/25/17 23:01 Dose: 90 mg Insulin Human Regular (Humulin R Med) 0 units SC ACHS [facility] PRN Reason: Protocol Last Admin: 10/26/17 08:30 Dose: Not Given Metoprolol Tartrate (Lopressor) 25 mg PO BID [facility] Last Admin: 10/26/17 09:38 Dose: 25 mg Pantoprazole Sodium (Protonix Ec Tab) 40 mg PO 0600 [facility] Last Admin: 10/26/17 06:42 Dose: 40 mg Topiramate (Topamax) 50 mg PO DAILY [facility] PRN Reason: Protocol Physical Exam - Constitutional Appears: Well, Non-toxic, No Acute Distress - Head Exam Head Exam: NORMAL INSPECTION - Eye Exam Eye Exam: EOMI, Normal appearance, PERRL - ENT Exam ENT Exam: Mucous Membranes Moist - Neck Exam Neck exam: Positive for: Full Rom, Normal Inspection. Negative for: Meningismus , Tenderness - Respiratory Exam Respiratory Exam: Clear to Auscultation Bilateral, NORMAL BREATHING PATTERN. absent: Rales, Rhonchi, Wheezes, Respiratory Distress - Cardiovascular Exam Cardiovascular Exam: RRR, +S1, +S2. absent: Systolic Murmur - GI/Abdominal Exam GI & Abdominal Exam: Normal Bowel Sounds. absent: Distended, Tenderness - Extremities Exam Extremities exam: Positive for: full ROM, normal inspection - Back Exam Back exam: NORMAL INSPECTION - Neurological Exam Neurological exam: Alert, CN II-XII Intact, Oriented x3, Reflexes Normal - Expanded Neurological Exam Expanded Patient oriented to: person, place, time Cranial nerves: EOM's Intact: Normal Ataxia: No (gait is stable w/ no swaying or trouble turning) Cerebellar Function: Finger to Nose: Normal, Romberg: Normal Upper motor neuron: Pronator Drift: Normal Sensory exam: Lower Extremity Light Touch: Normal, Upper Extremity Light Touch: Normal Neuro motor strength exam: Left Upper Extremity: 5, Right Upper Extremity: 5, Left Lower Extremity: 5, Right Lower Extremity: 5 - Psychiatric Exam Psychiatric exam: Normal Mood - Skin Skin Exam: Normal Color Results - Vital Signs Recent Vital Signs: Last Vital Signs Temp 97.8 F 10/26/17 05:58 Pulse 69 10/26/17 10:00 Resp 18 10/26/17 05:58 BP 121/74 10/26/17 09:38 Pulse Ox 97 10/26/17 05:58 - Labs Result Diagrams: 10/26/17 03:25 10/26/17 03:25 Labs: Laboratory Results - last 24 hr 10/25/17 10/25/17 10/26/17 21:05 21:37 03:25 WBC 8.1 RBC 4.64 Hgb 13.5 L Hct 39.6 L MCV 85.3 MCH 29.1 MCHC 34.1 RDW 13.6 Plt Count 178 MPV 10.7 Gran % 61.4 Lymph % (Auto) 29.8 [place] % (Auto) 7.0 H Eos % (Auto) 1.4 L Baso % (Auto) 0.4 Gran # 4.99 Lymph # (Auto) 2.4 [place] # (Auto) 0.6 Eos # (Auto) 0.1 Baso # (Auto) 0.03 Sodium Potassium Chloride Carbon Dioxide Anion Gap BUN Creatinine Est GFR ( Amer) Est GFR (Non-Af Amer) POC Glucose (mg/dL) 228 H Random Glucose Calcium Total Bilirubin AST ALT Alkaline Phosphatase Troponin I 0.23 H* D Total Protein Albumin Globulin Albumin/Globulin Ratio TSH 3rd Generation Urine Color Urine Appearance Urine pH Ur Specific [place] Urine Protein Urine Glucose (UA) Urine Ketones Urine Blood Urine Nitrate Urine Bilirubin Urine Urobilinogen Ur Leukocyte Esterase 10/26/17 10/26/17 10/26/17 03:25 03:25 07:00 WBC RBC Hgb Hct MCV MCH MCHC RDW Plt Count MPV Gran % Lymph % (Auto) [place] % (Auto) Eos % (Auto) Baso % (Auto) Gran # Lymph # (Auto) [place] # (Auto) Eos # (Auto) Baso # (Auto) Sodium 141 Potassium 4.0 Chloride 108 H Carbon Dioxide 25 Anion Gap 13 BUN 14 Creatinine 0.9 Est GFR ( Amer) > 60 Est GFR (Non-Af Amer) > 60 POC Glucose (mg/dL) Random Glucose 127 H Calcium 8.8 Total Bilirubin 0.5 AST 15 L ALT 29 Alkaline Phosphatase 51 Troponin I 0.57 H* D Total Protein 6.5 Albumin 3.6 Globulin 2.9 Albumin/Globulin Ratio 1.2 TSH 3rd Generation 0.28 L Urine Color Dark yellow Urine Appearance Clear Urine pH 5.5 Ur Specific [place] 1.025 Urine Protein Negative Urine Glucose (UA) 250 H Urine Ketones Negative Urine Blood Negative Urine Nitrate Negative Urine Bilirubin Negative Urine Urobilinogen 0.2 Ur Leukocyte Esterase Negative Assessment & Plan - Assessment and Plan (Free Text) Assessment: 61-year-old male with a PMH of DM 2, GERD, PUD presenting w/ chest pain, found to have an STEMI. On therapeutic Lovenox, ASA and Plavix, and will undergo LHC this afternoon with Dr. Finch. Patient also noted to have a LUE tremor x2 months , for which neurology was consulted. Tremor is resting, and improves with movement. Tremor could be due to an essential tremor vs Parkinson's disease. Patient does not currently have gait instability, memory changes or drastic cogwheel rigidity, so will assume essential tremor but patient will require further outpatient follow-up. Plan: Tremor - will start Topamax 50mg daily; given that it could affect renal function, will start it tomorrow following cath - patient should continue Topamax 50mg HS as outpatient - should follow-up with Dr. Elise in clinic when discharged safely - continue PT - further recs per Dr. Elise Case was reviewed and discussed with attending, Dr. Elise
--- NOTE | 2017-10-26 13:12 | CP.PCM.PN ---
<Russell Dunne - Last Filed: 10/26/17 13:07> Subjective - Date & Time of Evaluation Date of Evaluation: 10/26/17 Time of Evaluation: 07:45 - Subjective Subjective: Russell Dunne PGY-1 Progress Note for Hospitalist Service Patient seen and evaluated at bedside. Patient denies any current complaints of chest pain, palpitations, shortness of breath, dizziness, diaphoresis. No acute complaints overnight and patient slept well. Objective - Vital Signs/Intake and Output Vital Signs (last 24 hours): Temp Pulse Resp BP Pulse Ox 98.3 F 59 L 15 130/64 97 10/26/17 12:00 10/26/17 12:00 10/26/17 12:00 10/26/17 12:00 10/26/17 05:58 Intake and Output: 10/26/17 10/26/17 06:59 18:59 Intake Total 240 Balance 240 - Medications Medications: Current Medications Aspirin (Ecotrin) 81 mg PO DAILY [facility] Last Admin: 10/26/17 09:38 Dose: 81 mg Atorvastatin Calcium (Lipitor) 40 mg PO DIN [facility] Last Admin: 10/26/17 09:38 Dose: 40 mg Clopidogrel Bisulfate (Plavix) 75 mg PO DAILY [facility] Last Admin: 10/26/17 09:38 Dose: 75 mg Enoxaparin Sodium (Lovenox) 90 mg SC Q12H [facility] PRN Reason: Protocol Last Admin: 10/25/17 23:01 Dose: 90 mg Insulin Human Regular (Humulin R Med) 0 units SC ACHS [facility] PRN Reason: Protocol Last Admin: 10/26/17 12:00 Dose: Not Given Metoprolol Tartrate (Lopressor) 25 mg PO BID [facility] Last Admin: 10/26/17 09:38 Dose: 25 mg Pantoprazole Sodium (Protonix Ec Tab) 40 mg PO 0600 [facility] Last Admin: 10/26/17 06:42 Dose: 40 mg Topiramate (Topamax) 50 mg PO DAILY [facility] PRN Reason: Protocol - Labs Labs: 10/26/17 03:25 10/26/17 03:25 PT 12.0 SECONDS (9.4-12.5) 10/25/17 15:57 INR 1.05 10/25/17 15:57 APTT 25.1 Seconds (25.1-36.5) 10/25/17 15:57 Physical Exam - Constitutional Appears: Well, Non-toxic, No Acute Distress - Head Exam Head Exam: ATRAUMATIC, NORMAL INSPECTION, NORMOCEPHALIC - Eye Exam Eye Exam: EOMI, Normal appearance Pupil Exam: PERRL - ENT Exam ENT Exam: Mucous Membranes Moist, Normal Exam - Neck Exam Neck exam: Positive for: Normal Inspection - Respiratory Exam Respiratory Exam: Clear to Auscultation Bilateral, NORMAL BREATHING PATTERN. absent: Rales, Rhonchi, Wheezes - Cardiovascular Exam Cardiovascular Exam: RRR, +S1, +S2 - GI/Abdominal Exam GI & Abdominal Exam: Normal Bowel Sounds, Soft. absent: Tenderness - Extremities Exam Extremities exam: Positive for: normal inspection. Negative for: calf tenderness, joint swelling, pedal edema - Back Exam Back exam: NORMAL INSPECTION - Neurological Exam Neurological exam: Alert, CN II-XII Intact, Oriented x3 - Psychiatric Exam Psychiatric exam: Normal Affect, Normal Mood - Skin Skin Exam: Dry, Intact, Normal Color, Warm Assessment and Plan - Assessment and Plan (Free Text) Assessment: Assessment: 61 M with PMHx GERD, DM2, PUD who presented with chest pain, dizziness, and shortness of breath. Patient is comfortable and pain has resolved. Chest Pain 2/2 NSTEMI ASA 325 and nitropaste given in ambulance which brought relief Initial EKG performed showed nonspecific T wave changes in inferior leads, which was read as not requiring emergent catheterization Troponin x1 negative. 2nd and 3rd trops were progressively elevated 0.23 and 0.57 TSH 0.28 Repeat EKG in AM was unchanged from previous EKG F/u echo 10/26 Lipid panel within normal limits HHD mod carb Therapeutic lovenox 90 BID currently on hold for procedure ASA 81 daily, plavix 75 CXR on admission showed no active disease Cardio consulted (Dr. Finch) - patient to undergo catheterization this afternoon. Currently NPO in preparation. Will f/u results and the need to restart dual antiplatelet therapy DM2 noncompliance on Glipizide Glucose in urine accuchecks ISS moderate Diabetic education consulted will continue to monitor Unilateral UE Tremor paroxysmal. No focal deficits. Not evident during exam CT head w/o contrast was negative neurology consulted (Dr. Elise) - recs to begin Topamax 50 PO tomorrow Ppx: Protonix SCD Patient seen, case reviewed, and plan discussed with Dr. Barbour. Russell Dunne, PGY-1 <Andrew Barbour - Last Filed: 10/26/17 14:15> Objective - Vital Signs/Intake and Output Vital Signs (last 24 hours): Temp Pulse Resp BP Pulse Ox 98.3 F 59 L 15 130/64 97 10/26/17 12:00 10/26/17 12:00 10/26/17 12:00 10/26/17 12:00 10/26/17 05:58 Intake and Output: 10/26/17 10/26/17 06:59 18:59 Intake Total 240 Balance 240 - Medications Medications: Current Medications Aspirin (Ecotrin) 81 mg PO DAILY [facility] Last Admin: 10/26/17 09:38 Dose: 81 mg Atorvastatin Calcium (Lipitor) 40 mg PO DIN [facility] Last Admin: 10/26/17 09:38 Dose: 40 mg Clopidogrel Bisulfate (Plavix) 75 mg PO DAILY [facility] Last Admin: 10/26/17 09:38 Dose: 75 mg Enoxaparin Sodium (Lovenox) 90 mg SC Q12H [facility] PRN Reason: Protocol Last Admin: 10/25/17 23:01 Dose: 90 mg Insulin Human Regular (Humulin R Med) 0 units SC ACHS [facility] PRN Reason: Protocol Last Admin: 10/26/17 12:00 Dose: Not Given Metoprolol Tartrate (Lopressor) 25 mg PO BID [facility] Last Admin: 10/26/17 09:38 Dose: 25 mg Pantoprazole Sodium (Protonix Ec Tab) 40 mg PO 0600 [facility] Last Admin: 10/26/17 06:42 Dose: 40 mg Topiramate (Topamax) 50 mg PO DAILY [facility] PRN Reason: Protocol - Labs Labs: 10/26/17 03:25 10/26/17 03:25 PT 12.0 SECONDS (9.4-12.5) 10/25/17 15:57 INR 1.05 10/25/17 15:57 APTT 25.1 Seconds (25.1-36.5) 10/25/17 15:57 Attending/Attestation - Attestation I have personally seen and examined this patient.: Yes I have fully participated in the care of the patient.: Yes I have reviewed all pertinent clinical information, including history, physical exam and plan: Yes Notes (Text): 10/26/17 14:07 Medical record note made by the resident after discussion with my direction and input after the patient was personally seen and examined by me. I have reviewed the chart and agree that the record accurately reflects by personal performance of the history, physical exam, data review, and medical decision-making, in the course for the patient. I have also personally directed the plan of care. 61 M with PMH of GERD, PUD, and NIDDM with NSEMI. Patient is currently pain free, on ASA,Plavix, lovenox,Metoprolol and lipitor . Patient is pain free, schedule for cardiac cath. Management plan was discussed in detail with patient and family. Education was provided.
--- NOTE | 2017-10-26 15:14 | CARD ---
APPROVED REPORT Date of service: 10/26/2017 EKG Measurement Heart [id number] <Conclusion> Normal sinus rhythm Normal ECG
[2017-10-26] MEDS ORDERED: Iohexol 350mgl/ml 50 ML ONE (15:16)
[2017-10-26] MEDS ORDERED: Iohexol 350 MG/100 ML VIAL ONE (15:17)
[2017-10-26] MEDS ORDERED: Iodixanol 320 MG/ML 200 ML BOTTLE IV ONE (15:17)
[2017-10-26] MEDS ORDERED: Lidocaine PF 2% (5 ml) Inj (For Cardiac Arrhy) ONE (15:19)
[2017-10-26] MEDS ORDERED: Nitroglycerin 50mg in D5W 50 MG/250 ML BOTTLE IV ONE (15:22)
[2017-10-26] MEDS ORDERED: Verapamil 2 ML ONE (15:22)
--- NOTE | 2017-10-26 15:27 | CARD ---
APPROVED REPORT Date of service: 10/25/2017 EKG Measurement Heart [id number] 156P8 [id number] <Conclusion> Normal sinus rhythm Normal ECG
[2017-10-26] MEDS ORDERED: Phenylephrine 10 mg/ml Inj ONE (15:31)
[2017-10-26] MEDS ORDERED: Midazolam 2 MG/2 ML VIAL ONE (16:10)
[2017-10-26] MEDS ORDERED: Eptifibatide 20 mg/10mL Inj IVP ONE (16:32)
--- NOTE | 2017-10-26 17:03 | CARD ---
APPROVED REPORT Date of service: 10/26/2017 EXAM: Two-dimensional and M-mode echocardiogram with Doppler and color Doppler. INDICATION Non STEMI 2D DIMENSIONS Left Atrium (2D)4.5 (1.6-4.0cm)IVSd1.0 (0.7-1.1cm) LVDd4.8 (3.9-5.9cm)PWd1.2 (0.7-1.1cm) LVDs3.3 (2.5-4.0cm)FS (%) 30.3 % LVEF (%)57.5 (>50%) M-Mode DIMENSIONS Aortic Root3.60 (2.2-3.7cm)Aortic Cusp Exc.1.90 (1.5-2.0cm) Aortic Valve AoV Peak Yrcyenqd712.0cm/Jessenia Peak GR.9mmHg Mitral Valve MV E Dtwvcqoz295.0cm/sMV A Opejfvky04.3cm/sE/A ratio1.0 TDI Lateral E' Peak V8.48cm/sMedial E' Peak V8.48cm/sE/Lateral E'11.8 E/Medial E'11.8 Pulmonary Valve PV Peak Ujmggvxz96.7cm/sPV Peak Grad.2mmHg Tricuspid Valve TR Peak Hxrrytgb613xv/sRAP IJEHHIOL98clTaEY Peak Gr.20mmHg [id number] LEFT VENTRICLE The left ventricle is normal size. There is normal left ventricular wall thickness. The left ventricular function is normal. The left ventricular ejection fraction is within the normal range. There is normal LV segmental wall motion. Transmitral Doppler flow pattern is Grade I-abnormal relaxation pattern. RIGHT VENTRICLE The right ventricle is normal size. There is normal right ventricular wall thickness. The right ventricular systolic function is normal. ATRIA The left atrium is mildly dilated. The right atrium size is normal. AORTIC VALVE The aortic valve is mildly thickened. No aortic regurgitation is present. There is no aortic valvular stenosis. MITRAL VALVE The mitral valve is mildly thickened. Mitral regurgitation is trace. There is no mitral valve stenosis. TRICUSPID VALVE The tricuspid valve is normal in structure. There is trace to mild tricuspid regurgitation. PULMONIC VALVE The pulmonary valve is normal in structure. There is mild pulmonic valvular regurgitation. GREAT VESSELS The aortic root is normal in size. <Conclusion> The left ventricle is normal size. There is normal left ventricular wall thickness. The left ventricular function is normal. The left ventricular ejection fraction is within the normal range. There is normal LV segmental wall motion. Transmitral Doppler flow pattern is Grade I-abnormal relaxation pattern.
[2017-10-26] MEDS ORDERED: Sodium Chloride 0.9% 1,000 ML IV SCH (17:30)
--- NOTE | 2017-10-26 17:47 | CPOSTOP ---
Copied To: Andrew Finch MD Attending MD: Andrew Finch MD DATE: 10/26/2017 CARDIOVASCULAR LAB POST PROCEDURE NOTE DICTATING PHYSICIAN: Andrew Finch MD DICTAPHONE OPERATOR: NANDO Aguilar. TYPE OF ANESTHESIA: Moderate conscious sedation, total dose 2 mg of Versed and 50 of fentanyl given. PRE-PROCEDURE DIAGNOSES: Unstable angina, acute coronary syndrome, non-ST elevation myocardial infarction. PROCEDURES PERFORMED: 1. Left heart catheterization. 2. Stenting of left anterior descending artery, proximal. 3. Stenting of proximal right coronary artery. FINDINGS: An 80% LAD, 95% proximal RCA, distal RCA HORTICULTURAL MANAGER. FINAL DIAGNOSIS: Multivessel coronary artery disease. POST PROCEDURE CONDITION: Stable. VASCULAR ACCESS SITE: Left radial. CLOSURE DEVICE: TR band. TOTAL RADIATION DOSE: 39733.1 milligray unit. FLUORO TIME: 13.4 minute. Andrew Finch MD
--- NOTE | 2017-10-26 18:51 | CON ---
Copied To: Andrew Finch MD Attending MD: Andrew Finch MD DATE: 10/26/2017 REASON FOR THE CONSULTATION AND FOLLOWUP: Acute coronary syndrome, unstable angina. BRIEF CLINICAL HISTORY: This is a 61-year-old [id number] obese male with past medical history significant for gastroesophageal reflux, peptic ulcer disease, diabetes, presents with retrosternal chest pain associated with nausea, vomiting one episode and he had vomited all the food that he ate yesterday and now the patient is chest pain-free. Denies any chest pain, nausea, any shortness of breath. Denies any palpitation. Denies any prior episode of dyspnea on exertion, chest pain on exertion. The patient said that he was working in the lawn and trying to get the weed out from his garden, after that he became very nauseous, weak and whole body weight weak and some mild chest discomfort and vomited all the food that he ate in the lunch, after that he felt significant relief. His called the ambulance and got here. Denies any episode of chest pain. PAST MEDICAL HISTORY: Significant for diabetes, gastroesophageal reflux, also tremor in the left hand. ALLERGIES: NO KNOWN DRUG ALLERGY. MEDICATIONS: Currently patient takes Pepcid at home, glipizide and Motrin p.r.n. SOCIAL HISTORY: Smokes a day, denies any history of alcohol abuse. FAMILY HISTORY: Diabetes. No other significant coronary artery disease in the family. REVIEW OF SYSTEMS: As per HPI. PHYSICAL EXAMINATION: As follows: VITAL SIGNS: Height of the patient 6 feet, weight of the patient 200 pounds, body mass index 30 kg/m2. Temperature afebrile, heart rate 64, blood pressure 116/60. HEENT: PERRLA. Extraocular muscles intact. NECK: Supple. No carotid bruits or thyromegaly. CHEST: Clear to auscultation. HEART: S1 and S2, regular. ABDOMEN: Soft. EXTREMITIES: Clubbing and cyanosis, negative. LABORATORY DATA: Blood workup: WBC 8.1, hemoglobin 13.5, hematocrit 39.6, platelet count 178. Chemistry shows sodium 141, potassium 4, chloride 108, carbon dioxide 25, anion gap of 13, BUN 14, creatinine 0.9, troponin 0.56. EKG shows normal sinus. IMPRESSION: Acute coronary syndrome, unstable angina, diabetes. RECOMMENDATIONS: The patient was given last night dose of Lovenox, started load with Plavix and aspirin. Discussed with the patient. We will keep n.p.o. after the breakfast. Risks, benefits, and alternatives were discussed with the patient, patient agreed. We will proceed for cardiac catheterization. Further recommendation after the cardiac catheterization. Hold Lovenox. We will follow with you. Also put low dose of beta-latoya. Thank you, Dr. Hussein, for providing us the opportunity in taking care of the patient, Riley Bonilla. Andrew Finch MD
[2017-10-26 21:34] LABS: BASO # 0.03 K/mm3 (0.0-2.0); BASO % 0.4 % (0.0-3.0); EOS # 0.2 (0.0-0.7); EOS % 2.1 % (1.5-5.0); GRAN # 4.43 (1.4-6.5); GRAN % 57.8 % (50.0-68.0); HEMOGLOBIN 12.8 g/dL (14.0-18.0); LYMPH # 2.5 (1.2-3.4); LYMPH % 33.2 % (22.0-35.0); MEAN CELL VOLUME 85.5 fl (80.0-105.0); MEAN CORPUSCULAR HEMOGLOBIN 29.1 pg (25.0-35.0); MEAN PLATELET VOLUME 10.5 fl (7.0-11.0); MONO # 0.5 (0.1-0.6); MONO % 6.5 % (1.0-6.0); RBC 4.4 10^6/uL (3.5-6.1); RED CELL DISTRIBUTION WIDTH 13.5 % (11.5-14.5); WHITE BLOOD COUNT 7.7 10^3/ul (4.5-11.0)
[2017-10-26] MEDS ORDERED: Bacitracin 500 Units/gm Oint Foilpak UD ONE (21:39)
[2017-10-26 21:52] LABS: BLOOD UREA NITROGEN 13 mg/dL (7-21); GFR AFRICAN-AMERICAN > 60; GFR NON-AFRICAN AMERICAN > 60
[2017-10-26 21:53] LABS: CALCIUM 8.4 mg/dL (8.4-10.5)
--- NOTE | 2017-10-26 23:38 | CARD ---
APPROVED REPORT Date of service: 10/26/2017 Procedure(s) performed: Left Heart Catheterization PTCA with Stenting of Proximal LAD with VALERI PTCA with Stenting of Proximal RCA HISTORY The patient is a 61 year-old male with a history of : diabetes mellitus with insulin treatment , tobacco history() : The patient is a current smoker , hypertension , dyslipidemia , Admitted with ACS/ NSTEMI. INDICATION The indication(s) include : non-STEMI . CASE TECHNIQUE The patient was brought emergently to the Cardiac Catheterization Laboratory in a fasting state and was prepped and draped in a sterile manner. The left wrist was infiltrated with 2% Lidocaine subcutaneous anesthesia. A 6FR GLIDESHEATH ACCESS KIT sheath was inserted into the left radial artery without difficulty. Coronary angiography was performed using coronary diagnostic catheters. The left coronary system was accessed and visualized with a Diagnostic ,5F JL 4 CATH DXT 100 CM catheter. The right coronary system was accessed and visualized with a Diagnostic ,5 Fr JR 4 catheter. The left ventricle was accessed and visualized with a Pig tail catheter catheter. Left ventricular/Aortic Valve gradient assessed on pullback. Left ventriculogram was performed in SPENCER projection. Closure device was deployed with a Fr TR Band (Large) without any complications. The patient tolerated the procedure well and there were no complications associated with the procedure. Vessel Analysis The patient's coronary anatomy is right dominant. The left main coronary artery is a large size vessel with diffuse calcification noted throughout this vessel and without significant stenosis. The left main trifurcates to the left anterior descending, circumflex, and ramus. The left anterior descending artery is a medium size vessel with diffuse calcification noted throughout this vessel and with significant stenosis. There is a 80% stenosis in the proximal segment. Distal LAD has 50-60% stenosis The first diagonal branch is a medium size vessel with diffuse calcification noted throughout this vessel and without significant stenosis. There is a 60% stenosis in the proximal segment. The circumflex artery is a medium size vessel with diffuse calcification noted throughout this vessel and without significant stenosis. The first obtuse marginal branch is a small size vessel with diffuse calcification noted throughout this vessel and without significant stenosis. The ramus intermedius artery is a medium size vessel with diffuse calcification noted throughout this vessel and without significant stenosis. The right coronary artery is a medium size vessel with diffuse calcification noted throughout this vessel and with significant stenosis. There is a 95% stenosis in the proximal segment. Very distal RCA SOLUTION STRATEGIST, well collateralized from LAD The right posterior descending artery is a small size vessel with diffuse calcification noted throughout this vessel and without significant stenosis. Left Ventricle The left ventricle is normal in size with normal contractility. There was no cardiomyopathy. The left ventricular ejection fraction is estimated to be 55%. The left ventricular end diastolic pressure is 15 mmHg. PCI Technique Lesion Anticoagulation was achieved with Heparin and integrellin Bollus. Percutaneous coronary intervention was performed on the proximal left anterior descending artery segment. The lesion stenosis prior to intervention was 80% with JOANNA flow. A 6 Fr XB 3.5 Guide Catheter was used to engage the ostium. A Luge 182 Interventional Guidewire was used to cross the lesion. BALLOON DILATION A Balloon catheter 2.0 x 15 mm Sprinter RX was inserted and inflated up to 12.00atm for 16seconds. STENT DEPLOYMENT A drug-eluting stent STENT RESOLUTE JOSE 3.0 X 22 was inserted and inflated up to 12.00atm for 16seconds. POST STENT DEPLOYMENT BALLOON DILATION A Balloon catheter 3.5 x 12 mm Trek RX NC was inserted and inflated up to 14.00atm for 16seconds. Final angiography reveals 0 % stenosis with JOANNA 3 flow. PCI Technique Lesion 2 Percutaneous Coronary Intervention was performed on the Proximal right coronary artery. The lesion stenosis prior to intervention was 95% with JOANNA 1 flow. A 6 Fr JR 4 SH Guide Catheter was used to engage the ostium. A Luge 182 Interventional Guidewire was used to cross the lesion. BALLOON DILATION A Balloon catheter 2.0 x 15 mm Sprinter RX was inserted and inflated up to 12.00atm for 21seconds. STENT DEPLOYMENT A drug-eluting stent STENT RESOLUTE JOSE 2.75 X15 was inserted and inflated up to 14.00atm for 20seconds. Final angiography reveals 0 % stenosis with JOANNA 3 flow. Conclusion Multi Vessel CAD, Distal RCA SOLUTION STRATEGIST, well collateralized from LAD Distal RCA/ LAD poor target for CABG preserved LV Fx, EF-555, EDP-15 mmof hg. Successful PTCA with VALERI of Proximal LAD and Proximal RCA Recommendations Smoking Cessation Cardiac Rehabilitation ReferralDaily ASA with Plavix for at least one year Aggressive Medical TherapyCardiac Risk Reduction Program Weight Loss Reduction Program Cc; Chau Iniguez MD
--- NOTE | 2017-10-27 00:09 | CARD ---
APPROVED REPORT Date of service: 10/26/2017 EKG Measurement Heart [id number] <Conclusion> Sinus bradycardia Otherwise normal ECG
[2017-10-27] MEDS: Pantoprazole 40 mg EC Tab PO SCH (05:33)
[2017-10-27 06:13] VITALS: O2SAT 96
[2017-10-27] MEDS: Insulin Reg-MEDIUM-Coverage SC SCH ×2 (07:57→11:55)
--- NOTE | 2017-10-27 09:00 | CP.PCM.PN ---
Subjective - Date & Time of Evaluation Date of Evaluation: 10/27/17 Time of Evaluation: 08:59 - Subjective Subjective: Byron Viramontes PGY 2 Neurology Progress Note for Dr. Elise Patient was seen and examined at bedside. He states that he tolerated the catheter procedure very well and that he has no chest pain currently. There were no acute overnight events, and he is making urine. He has however refused his morning labs stating that he feels fine. I educated the patient on the fact that we need to evaluate his CBC and CMP for bleeding and kidney function and for any post-cath complications. The patient insists that he doesn't want labs drawn. He is informed that he will be started on Topamax today and that he should follow-up with Dr. Elise in clinic when discharged. Objective - Vital Signs/Intake and Output Vital Signs (last 24 hours): Temp Pulse Resp BP Pulse Ox 98.0 F 61 20 132/50 L 96 10/27/17 06:00 10/27/17 06:00 10/27/17 06:00 10/27/17 06:00 10/27/17 06:00 Intake and Output: 10/27/17 10/27/17 06:59 18:59 Intake Total 565 Balance 565 - Medications Medications: Current Medications Aspirin (Ecotrin) 81 mg PO DAILY [facility] Last Admin: 10/26/17 09:38 Dose: 81 mg Atorvastatin Calcium (Lipitor) 40 mg PO DIN [facility] Last Admin: 10/26/17 09:38 Dose: 40 mg Clopidogrel Bisulfate (Plavix) 75 mg PO DAILY [facility] Last Admin: 10/26/17 09:38 Dose: 75 mg Enoxaparin Sodium (Lovenox) 90 mg SC Q12H [facility] PRN Reason: Protocol Last Admin: 10/25/17 23:01 Dose: 90 mg Insulin Human Regular (Humulin R Med) 0 units SC ACHS [facility] PRN Reason: Protocol Last Admin: 10/27/17 07:57 Dose: Not Given Lisinopril (Zestril) 2.5 mg PO DAILY [facility] Metoprolol Tartrate (Lopressor) 25 mg PO BID [facility] Last Admin: 10/26/17 18:18 Dose: 25 mg Pantoprazole Sodium (Protonix Ec Tab) 40 mg PO 0600 [facility] Last Admin: 10/27/17 05:33 Dose: Not Given Topiramate (Topamax) 50 mg PO DAILY [facility] PRN Reason: Protocol - Labs Labs: 10/26/17 21:15 10/26/17 21:15 PT 12.0 SECONDS (9.4-12.5) 10/25/17 15:57 INR 1.05 10/25/17 15:57 APTT 25.1 Seconds (25.1-36.5) 10/25/17 15:57 - Constitutional Appears: Well, Non-toxic, No Acute Distress - Head Exam Head Exam: NORMAL INSPECTION - Eye Exam Eye Exam: EOMI, Normal appearance, PERRL - ENT Exam ENT Exam: Mucous Membranes Moist - Neck Exam Neck Exam: Normal Inspection - Respiratory Exam Respiratory Exam: Clear to Ausculation Bilateral, NORMAL BREATHING PATTERN. absent: Rales, Rhonchi, Wheezes - Cardiovascular Exam Cardiovascular Exam: RRR, +S1, +S2. absent: Murmur - GI/Abdominal Exam GI & Abdominal Exam: Soft, Normal Bowel Sounds. absent: Distended, Tenderness - Extremities Exam Extremities Exam: Full ROM. absent: Pedal Edema Additional comments: left radial cath site is without dressing, but no active bleeding or hematoma noted - Back Exam Back Exam: NORMAL INSPECTION - Neurological Exam Neurological Exam: Alert, Awake, CN II-XII Intact, Oriented x3 Neuro motor strength exam: Left Upper Extremity: 5, Right Upper Extremity: 5, Left Lower Extremity: 5, Right Lower Extremity: 5 - Psychiatric Exam Psychiatric exam: Normal Mood - Skin Skin Exam: Warm Assessment and Plan - Assessment and Plan (Free Text) Assessment: 61-year-old male with a PMH of DM 2, GERD, PUD and tobacco use presenting w/ chest pain, found to have an NSTEMI s/p PTCA w/ VALERI of LAD and RCA with Dr. Finch. Patient also noted to have a LUE tremor x2 months, for which neurology was consulted. Tremor is noted at rest, and improves with movement. Tremor could be due to an essential tremor vs Parkinson's disease. Patient does not currently have gait instability, memory changes or drastic cogwheel rigidity, so will assume essential tremor but patient will require further outpatient follow-up. Plan: Tremor - will start Topamax 50mg daily today - patient should continue Topamax 50mg HS as outpatient - should follow-up with Dr. Elise in clinic when discharged safely - Echo was done and showed normal LV systolic function and no major abnormalities - continue PT - advised regarding smoking cessation and its benefits - advised to comply with medications, especially DAPT s/p cath - strict glycemic control - further recs per Dr. Finch - further recs per Dr. Elise Case was reviewed and discussed with attending, Dr. Elise
--- NOTE | 2017-10-27 10:50 | CP.PCM.PN ---
Subjective - Date & Time of Evaluation Date of Evaluation: 10/27/17 Time of Evaluation: 07:15 - Subjective Subjective: Awake, denies chest pain, post PTCA Reason for consultation and follow up: Cardiac evaluation of unstable angina, NSTEMI Seen and examined by me and Dr. Finch Objective - Vital Signs/Intake and Output Vital Signs (last 24 hours): Temp Pulse Resp BP Pulse Ox 98.0 F 63 20 130/50 L 96 10/27/17 06:00 10/27/17 09:27 10/27/17 06:00 10/27/17 09:27 10/27/17 06:00 Intake and Output: 10/27/17 10/27/17 06:59 18:59 Intake Total 565 Balance 565 - Medications Medications: Current Medications Aspirin (Ecotrin) 81 mg PO DAILY [facility] Last Admin: 10/27/17 09:27 Dose: 81 mg Atorvastatin Calcium (Lipitor) 40 mg PO DIN [facility] Last Admin: 10/26/17 09:38 Dose: 40 mg Clopidogrel Bisulfate (Plavix) 75 mg PO DAILY [facility] Last Admin: 10/27/17 09:27 Dose: 75 mg Enoxaparin Sodium (Lovenox) 90 mg SC Q12H [facility] PRN Reason: Protocol Last Admin: 10/25/17 23:01 Dose: 90 mg Insulin Human Regular (Humulin R Med) 0 units SC ACHS [facility] PRN Reason: Protocol Last Admin: 10/27/17 07:57 Dose: Not Given Lisinopril (Zestril) 2.5 mg PO DAILY [facility] Last Admin: 10/27/17 09:26 Dose: 2.5 mg Metoprolol Tartrate (Lopressor) 25 mg PO BID [facility] Last Admin: 10/27/17 09:27 Dose: 25 mg Pantoprazole Sodium (Protonix Ec Tab) 40 mg PO 0600 [facility] Last Admin: 10/27/17 05:33 Dose: Not Given Topiramate (Topamax) 50 mg PO DAILY [facility] PRN Reason: Protocol Last Admin: 10/27/17 09:26 Dose: 50 mg - Labs Labs: 10/26/17 21:15 10/26/17 21:15 PT 12.0 SECONDS (9.4-12.5) 10/25/17 15:57 INR 1.05 10/25/17 15:57 APTT 25.1 Seconds (25.1-36.5) 10/25/17 15:57 - Constitutional Appears: No Acute Distress - Eye Exam Eye Exam: Normal appearance - ENT Exam ENT Exam: Mucous Membranes Moist - Respiratory Exam Respiratory Exam: Clear to Ausculation Bilateral, NORMAL BREATHING PATTERN - Cardiovascular Exam Cardiovascular Exam: +S1, +S2 Additional comments: denies chest pain - GI/Abdominal Exam GI & Abdominal Exam: Soft, Normal Bowel Sounds - Extremities Exam Extremities Exam: Normal Capillary Refill Additional comments: left radial no bleeding,no hematoma - Neurological Exam Neurological Exam: Alert, Awake, Oriented x3 - Psychiatric Exam Psychiatric exam: Normal Affect - Skin Skin Exam: Intact, Warm Assessment and Plan - Assessment and Plan (Free Text) Assessment: A 61 year old male who came in to the ER due to chest pain. NSTEMI.History of GERD, peptic ulcer disease,diabetes mellitus, current smoker, Cardiac cath done yesterday and results showed coronary disease on proximal LAD and Proximal RCA. PTCA/stent were done successfully. denies chest pain or shortness of breath today. Plan: Denies shortness of breath or chest pain Successful PTCA/stent of proximal LAD and proximal RCA On Plavix and ASA Controlled heart rate and blood pressure Smoking cessation Lifestyle modification Continue current treatment Continue current medications Possible discharge today Follow up in office in 2-3 weeks Plan and treatment discussed with Dr. Finch
[2017-10-27 10:55] LABS: HEMOGLOBIN 13.4 g/dL (14.0-18.0); MEAN CELL VOLUME 85.7 fl (80.0-105.0); MEAN CORPUSCULAR HEMOGLOBIN 29.5 pg (25.0-35.0); MEAN CORPUSCULAR HGB CONC 34.4 g/dl (31.0-37.0); MEAN PLATELET VOLUME 10.6 fl (7.0-11.0); RBC 4.54 10^6/uL (3.5-6.1); RED CELL DISTRIBUTION WIDTH 13.4 % (11.5-14.5); WHITE BLOOD COUNT 7.5 10^3/ul (4.5-11.0)
[2017-10-27 11:14] LABS: BLOOD UREA NITROGEN 12 mg/dL (7-21); CALCIUM 9.2 mg/dL (8.4-10.5); GFR AFRICAN-AMERICAN > 60; GFR NON-AFRICAN AMERICAN > 60
[2017-10-27 13:02] VITALS: BP 121/74; PULSE 59; RESP 18; TEMP 98.2
--- NOTE | 2017-10-27 15:29 | CP.PCM.DIS ---
<Russell Dunne - Last Filed: 10/27/17 15:49> Provider - Provider Date of Admission: 10/26/17 14:03 Attending physician: Andrew Barbour MD Primary care physician: Dr. Srinivasan Consults: cardio - Dr. Finch Neuro - Dr. Elise Time Spent in preparation of Discharge (in minutes): 45 Hospital Course - Lab Results Lab Results: Most Recent Lab Values WBC 7.5 10^3/ul (4.5-11.0) 10/27/17 10:40 RBC 4.54 10^6/uL (3.5-6.1) 10/27/17 10:40 Hgb 13.4 g/dL (14.0-18.0) L 10/27/17 10:40 Hct 38.9 % (42.0-52.0) L 10/27/17 10:40 MCV 85.7 fl (80.0-105.0) 10/27/17 10:40 MCH 29.5 pg (25.0-35.0) 10/27/17 10:40 MCHC 34.4 g/dl (31.0-37.0) 10/27/17 10:40 RDW 13.4 % (11.5-14.5) 10/27/17 10:40 Plt Count 189 10^3/uL (120.0-450.0) 10/27/17 10:40 MPV 10.6 fl (7.0-11.0) 10/27/17 10:40 Gran % 57.8 % (50.0-68.0) 10/26/17 21:15 Lymph % (Auto) 33.2 % (22.0-35.0) 10/26/17 21:15 Forrest % (Auto) 6.5 % (1.0-6.0) H 10/26/17 21:15 Eos % (Auto) 2.1 % (1.5-5.0) 10/26/17 21:15 Baso % (Auto) 0.4 % (0.0-3.0) 10/26/17 21:15 Gran # 4.43 (1.4-6.5) 10/26/17 21:15 Lymph # (Auto) 2.5 (1.2-3.4) 10/26/17 21:15 Forrest # (Auto) 0.5 (0.1-0.6) 10/26/17 21:15 Eos # (Auto) 0.2 (0.0-0.7) 10/26/17 21:15 Baso # (Auto) 0.03 K/mm3 (0.0-2.0) 10/26/17 21:15 PT 12.0 SECONDS (9.4-12.5) 10/25/17 15:57 INR 1.05 10/25/17 15:57 APTT 25.1 Seconds (25.1-36.5) 10/25/17 15:57 Sodium 140 mmol/L (132-148) 10/27/17 10:40 Potassium 5.2 mmol/L (3.6-5.0) H 10/27/17 10:40 Chloride 102 mmol/L (98-107) 10/27/17 10:40 Carbon Dioxide 30 mmol/L (21-33) 10/27/17 10:40 Anion Gap 13 (10-20) 10/27/17 10:40 BUN 12 mg/dL (7-21) 10/27/17 10:40 Creatinine 0.8 mg/dl (0.8-1.5) 10/27/17 10:40 Est GFR ( Amer) > 60 10/27/17 10:40 Est GFR (Non-Af Amer) > 60 10/27/17 10:40 POC Glucose (mg/dL) 112 mg/dL (65-110) H 10/27/17 07:55 Random Glucose 172 mg/dL (70-110) H 10/27/17 10:40 Hemoglobin A1c 7.8 % (4.2-6.5) H 10/25/17 21:05 Calcium 9.2 mg/dL (8.4-10.5) 10/27/17 10:40 Phosphorus 2.3 mg/dL (2.5-4.5) L 10/25/17 15:57 Magnesium 2.0 mg/dL (1.7-2.2) 10/25/17 15:57 Total Bilirubin 0.5 mg/dL (0.2-1.3) 10/26/17 03:25 AST 15 U/L (17-59) L 10/26/17 03:25 ALT 29 U/L (7-56) 10/26/17 03:25 Alkaline Phosphatase 51 U/L (38-126) 10/26/17 03:25 Lactate Dehydrogenase 364 U/L (333-699) 10/25/17 15:57 Total Creatine Kinase 62 U/L (35-230) 10/25/17 15:57 Troponin I 0.57 ng/mL H* D 10/26/17 03:25 Total Protein 6.5 g/dL (5.8-8.3) 10/26/17 03:25 Albumin 3.6 g/dL (3.0-4.8) 10/26/17 03:25 Globulin 2.9 gm/dL 10/26/17 03:25 Albumin/Globulin Ratio 1.2 (1.1-1.8) 10/26/17 03:25 Triglycerides 120 mg/dL (35-160) 10/25/17 15:57 Cholesterol 162 mg/dL (130-200) 10/25/17 15:57 LDL Cholesterol Direct 107 mg/dL (0-129) 10/25/17 15:57 HDL Cholesterol 31 mg/dL (29-60) 10/25/17 15:57 Lipase 249 U/L (23-300) 10/25/17 15:57 TSH 3rd Generation 0.28 mIU/mL (0.46-4.68) L 10/26/17 03:25 Urine Color Dark yellow (YELLOW) 10/26/17 07:00 Urine Appearance Clear (CLEAR) 10/26/17 07:00 Urine pH 5.5 (4.7-8.0) 10/26/17 07:00 Ur Specific Kirwin 1.025 (1.005-1.035) 10/26/17 07:00 Urine Protein Negative mg/dL (<30 mg/dL) 10/26/17 07:00 Urine Glucose (UA) 250 mg/dL (NEGATIVE) H 10/26/17 07:00 Urine Ketones Negative mg/dL (NEGATIVE) 10/26/17 07:00 Urine Blood Negative (NEGATIVE) 10/26/17 07:00 Urine Nitrate Negative (NEGATIVE) 10/26/17 07:00 Urine Bilirubin Negative (NEGATIVE) 10/26/17 07:00 Urine Urobilinogen 0.2 E.U./dL (<1 E.U./dL) 10/26/17 07:00 Ur Leukocyte Esterase Negative Keri/uL (NEGATIVE) 10/26/17 07:00 - Hospital Course Hospital Course: Russell Dunne, PGY-1 Discharge Summary for Hospitalist Service CC: 61 M with PMHx GERD, DM2, PUD who presented with chest pain, dizziness, and shortness of breath. Hospital Course: 61 M who presented with dizziness and chest pain. Troponins were ordered, and while the first was negative, the 2nd and 3rd troponins increased to 0.23 and 0.57 respectively. ASA 325 and nitropaste given in ER. CXR on admission showed no active disease Initial EKG performed showed nonspecific T wave changes in inferior leads, which was read as not requiring emergent catheterization. Repeat EKG in AM was unchanged from previous EKG, but due to elevated troponins , patient was scheduled for catheterization on afternoon of 10/26. NSTEMI diagnosis was made. Follow up echo showed an EF of 57.5%. Grade 1 abnormal relaxation pattern. Lipid panel was within normal limits. Patient was medically optimized with ASA 81 daily, plavix 75, lipitor, metoprolol and Lisinopril. Cardio was consulted (Dr. Finch), and decision was made for patient to undergo catheterization. NPO in preparation. Therapeutic lovenox 90 BID was put on hold for procedure. The procedure report showed 80% stenosis of LAD and 95% stenosis of proximal RCA with distal RCA occlusion. [address], one in the pLAD and one in pRCA. Patient also noted to have a LUE tremor x2 months, for which neurology was consulted. Tremor is noted at rest, and improves with movement. Tremor could be due to an essential tremor vs Parkinson's disease. Ct head was negative. Patient does not currently have gait instability, memory changes or drastic cogwheel rigidity, so patient will require further outpatient follow-up. Patient to began Topamax 50 mg today. Patient was instructed to follow up in clinic with Dr. Elies. Patient also has DM2, for which the patient is noncompliant on his mediations. Patient was put on accuchecks on moderate ISS. Diabetic education, medication compliance, and follow up to catheterization procedure was discussed with the patient at length. Patient is in no acute distress, is in full capacity and wishes to go home. Patient is hemodynamically stable, without any acute complaints or pain. Please refer to chart for further details. Patient seen, case reviewed, and plan discussed with Dr. Barbour. Discharge Exam - Head Exam Head Exam: NORMAL INSPECTION Additional comments: Physical Exam - Constitutional Appears: Well, Non-toxic, No Acute Distress - Head Exam Head Exam: ATRAUMATIC, NORMAL INSPECTION, NORMOCEPHALIC - Eye Exam Eye Exam: EOMI, Normal appearance Pupil Exam: PERRL - ENT Exam ENT Exam: Mucous Membranes Moist, Normal Exam - Neck Exam Neck exam: Positive for: Normal Inspection - Respiratory Exam Respiratory Exam: Clear to Auscultation Bilateral, NORMAL BREATHING PATTERN. absent: Rales, Rhonchi, Wheezes - Cardiovascular Exam Cardiovascular Exam: RRR, +S1, +S2 - GI/Abdominal Exam GI & Abdominal Exam: Normal Bowel Sounds, Soft. absent: Tenderness - Extremities Exam Extremities exam: Positive for: normal inspection. Negative for: calf tenderness, joint swelling, pedal edema Left radial cath placement with small 1 cm bruise. No acute bleeding or tenderness noted. - Back Exam Back exam: NORMAL INSPECTION - Neurological Exam Neurological exam: Alert, CN II-XII Intact, Oriented x3 - Psychiatric Exam Psychiatric exam: Normal Affect, Normal Mood - Skin Skin Exam: Dry, Intact, Normal Color, Warm Discharge Plan - Discharge Medications Prescriptions: Aspirin [Ecotrin] 325 mg PO DAILY #30 tabec Atorvastatin [Lipitor] 40 mg PO DIN #30 tab Clopidogrel [Plavix] 75 mg PO DAILY #30 tab Metoprolol Tartrate [Lopressor] 25 mg PO BID #60 tab Pantoprazole [Protonix EC Tab] 40 mg PO 0600 #30 ect Topiramate [Topamax] 50 mg PO DAILY #30 tab - Follow Up Plan Condition: FAIR Disposition: HOME/ ROUTINE Patient education suggested?: Yes Instructions: Cardiac Catheterization, Coronary Angioplasty (DC), Coronary Stenting (DC), Shortness of Breath (Dyspnea) (DC), Chest Pain (DC), Generalized Weakness (DC) Additional Instructions: Patient should take all medications as prescribed. Patient should follow up with Dr. Srinivasan for follow up BMP, diabetes control, and post-cath follow up. Patient should get a BMP blood work on TuesdayOctober 31 in advance of coming to health clinic. Please follow up with transit operator (Dr. Finch) within one week. Please follow up with Dr. Elise (neurologist) as an outpatient. Will defer to cardiology with regards to restarting other medications (RACHEL- inhibitor). Should symptoms reoccur or worsen, please return to nearest emergency department. Referrals: Jhon Elise MD [Staff Provider] - (Please call to make an appointment) Andrew Finch MD [Staff Provider] - <Andrew Barbour - Last Filed: 10/27/17 17:01> Provider - Provider Date of Admission: 10/26/17 14:03 Attending physician: Andrew Barbour MD Hospital Course - Lab Results Lab Results: Most Recent Lab Values WBC 7.5 10^3/ul (4.5-11.0) 10/27/17 10:40 RBC 4.54 10^6/uL (3.5-6.1) 10/27/17 10:40 Hgb 13.4 g/dL (14.0-18.0) L 10/27/17 10:40 Hct 38.9 % (42.0-52.0) L 10/27/17 10:40 MCV 85.7 fl (80.0-105.0) 10/27/17 10:40 MCH 29.5 pg (25.0-35.0) 10/27/17 10:40 MCHC 34.4 g/dl (31.0-37.0) 10/27/17 10:40 RDW 13.4 % (11.5-14.5) 10/27/17 10:40 Plt Count 189 10^3/uL (120.0-450.0) 10/27/17 10:40 MPV 10.6 fl (7.0-11.0) 10/27/17 10:40 Gran % 57.8 % (50.0-68.0) 10/26/17 21:15 Lymph % (Auto) 33.2 % (22.0-35.0) 10/26/17 21:15 Forrest % (Auto) 6.5 % (1.0-6.0) H 10/26/17 21:15 Eos % (Auto) 2.1 % (1.5-5.0) 10/26/17 21:15 Baso % (Auto) 0.4 % (0.0-3.0) 10/26/17 21:15 Gran # 4.43 (1.4-6.5) 10/26/17 21:15 Lymph # (Auto) 2.5 (1.2-3.4) 10/26/17 21:15 Forrest # (Auto) 0.5 (0.1-0.6) 10/26/17 21:15 Eos # (Auto) 0.2 (0.0-0.7) 10/26/17 21:15 Baso # (Auto) 0.03 K/mm3 (0.0-2.0) 10/26/17 21:15 PT 12.0 SECONDS (9.4-12.5) 10/25/17 15:57 INR 1.05 10/25/17 15:57 APTT 25.1 Seconds (25.1-36.5) 10/25/17 15:57 Sodium 140 mmol/L (132-148) 10/27/17 10:40 Potassium 5.2 mmol/L (3.6-5.0) H 10/27/17 10:40 Chloride 102 mmol/L (98-107) 10/27/17 10:40 Carbon Dioxide 30 mmol/L (21-33) 10/27/17 10:40 Anion Gap 13 (10-20) 10/27/17 10:40 BUN 12 mg/dL (7-21) 10/27/17 10:40 Creatinine 0.8 mg/dl (0.8-1.5) 10/27/17 10:40 Est GFR ( Amer) > 60 10/27/17 10:40 Est GFR (Non-Af Amer) > 60 10/27/17 10:40 POC Glucose (mg/dL) 112 mg/dL (65-110) H 10/27/17 07:55 Random Glucose 172 mg/dL (70-110) H 10/27/17 10:40 Hemoglobin A1c 7.8 % (4.2-6.5) H 10/25/17 21:05 Calcium 9.2 mg/dL (8.4-10.5) 10/27/17 10:40 Phosphorus 2.3 mg/dL (2.5-4.5) L 10/25/17 15:57 Magnesium 2.0 mg/dL (1.7-2.2) 10/25/17 15:57 Total Bilirubin 0.5 mg/dL (0.2-1.3) 10/26/17 03:25 AST 15 U/L (17-59) L 10/26/17 03:25 ALT 29 U/L (7-56) 10/26/17 03:25 Alkaline Phosphatase 51 U/L (38-126) 10/26/17 03:25 Lactate Dehydrogenase 364 U/L (333-699) 10/25/17 15:57 Total Creatine Kinase 62 U/L (35-230) 10/25/17 15:57 Troponin I 0.57 ng/mL H* D 10/26/17 03:25 Total Protein 6.5 g/dL (5.8-8.3) 10/26/17 03:25 Albumin 3.6 g/dL (3.0-4.8) 10/26/17 03:25 Globulin 2.9 gm/dL 10/26/17 03:25 Albumin/Globulin Ratio 1.2 (1.1-1.8) 10/26/17 03:25 Triglycerides 120 mg/dL (35-160) 10/25/17 15:57 Cholesterol 162 mg/dL (130-200) 10/25/17 15:57 LDL Cholesterol Direct 107 mg/dL (0-129) 10/25/17 15:57 HDL Cholesterol 31 mg/dL (29-60) 10/25/17 15:57 Lipase 249 U/L (23-300) 10/25/17 15:57 TSH 3rd Generation 0.28 mIU/mL (0.46-4.68) L 10/26/17 03:25 Urine Color Dark yellow (YELLOW) 10/26/17 07:00 Urine Appearance Clear (CLEAR) 10/26/17 07:00 Urine pH 5.5 (4.7-8.0) 10/26/17 07:00 Ur Specific Kirwin 1.025 (1.005-1.035) 10/26/17 07:00 Urine Protein Negative mg/dL (<30 mg/dL) 10/26/17 07:00 Urine Glucose (UA) 250 mg/dL (NEGATIVE) H 10/26/17 07:00 Urine Ketones Negative mg/dL (NEGATIVE) 10/26/17 07:00 Urine Blood Negative (NEGATIVE) 10/26/17 07:00 Urine Nitrate Negative (NEGATIVE) 10/26/17 07:00 Urine Bilirubin Negative (NEGATIVE) 10/26/17 07:00 Urine Urobilinogen 0.2 E.U./dL (<1 E.U./dL) 10/26/17 07:00 Ur Leukocyte Esterase Negative Keri/uL (NEGATIVE) 10/26/17 07:00 Attending/Attestation - Attestation I have personally seen and examined this patient.: Yes I have fully participated in the care of the patient.: Yes I have reviewed all pertinent clinical information, including history, physical exam and plan: Yes Notes (Text): 10/27/17 16:56 Medical record note made by the resident after discussion with my direction and input after the patient was personally seen and examined by me. I have reviewed the chart and agree that the record accurately reflects by personal performance of the history, physical exam, data review, and medical decision-making, in the course for the patient. I have also personally directed the plan of care. 61 year old male with PMH of GERD, peptic ulcer disease,diabetes mellitus, current smoke wasa dmitted with . NSTEMI .Patient underwent Cardiac cath yesterday and results showed coronary disease on proximal LAD and Proximal RCA. PTCA/stent were done successfully.Patient remain stable after the procedure.He will be discharged home on ASA/Plavix/Metoprolol/Lipitor. The issue of compl;iance with medication was discussed in detail with him. Issue of chronic smoking was also discussed in detail. Management plan was discussed in detail with patient. Education was provided
== END 2017-10-27 13:05 | disposition home or self-care (01) | DRG 853 ==
LOC: ED 15:01 → ERH 17:04 → 2RSO 18:55 → OBSVTOIN 10-26 14:03
PROVIDERS: ADMIT Internal Medicine; ATTEND Internal Medicine
PROC: 027135Z Dilation of Coronary Artery, Two Arteries with Two Drug-eluting Intraluminal Devices, Percutaneous Approach (ICD-10-PCS; principal; 2017-10-26)
PROC: 4A023N7 Measurement of Cardiac Sampling and Pressure, Left Heart, Percutaneous Approach (ICD-10-PCS; 2017-10-26)
PROC: B2111ZZ Fluoroscopy of Multiple Coronary Arteries using Low Osmolar Contrast (ICD-10-PCS; 2017-10-26)
PROC: B2151ZZ Fluoroscopy of Left Heart using Low Osmolar Contrast (ICD-10-PCS; 2017-10-26)
PROC: 3E033PZ Introduction of Platelet Inhibitor into Peripheral Vein, Percutaneous Approach (ICD-10-PCS; 2017-10-26)
DX: I21.4 Non-ST elevation (NSTEMI) myocardial infarction (principal); E11.65 Type 2 diabetes mellitus with hyperglycemia; E78.5 Hyperlipidemia, unspecified; E66.9 Obesity, unspecified; F17.210 Nicotine dependence, cigarettes, uncomplicated; I10 Essential (primary) hypertension; I25.110 Atherosclerotic heart disease of native coronary artery with unstable angina pectoris; K21.9 Gastro-esophageal reflux disease without esophagitis; Z79.4 Long term (current) use of insulin; Z79.82 Long term (current) use of aspirin; Z83.3 Family history of diabetes mellitus; Z87.11 Personal history of peptic ulcer disease; Z91.19 Patient's noncompliance with other medical treatment and regimen; Z95.5 Presence of coronary angioplasty implant and graft; Z68.28 Body mass index [BMI] 28.0-28.9, adult